=== PATIENT | male | born 1955 | race Caucasian/White ===

== ENCOUNTER → 2018-10-28 12:40 | Outpatient (CLI) | payer BC | END | disposition home or self-care (01) | LOC: D.RAD 10-27 14:30 | PROVIDERS: ATTEND Orthopaedic Surgery | DX: S43.431A Superior glenoid labrum lesion of right shoulder, initial encounter (principal); X58.XXXA Exposure to other specified factors, initial encounter ==

== ENCOUNTER 2018-12-31 05:00 | Day surgery (SDC) | payer BC ==
[2018-12-30 12:45] LABS: HEMATOCRIT 38.4 % (42.0-54.0); HEMOGLOBIN 13.2 g/dL (13.5-17.5); MCH 30.6 pg (26.0-34.0); MCHC 34.4 g/dL (31.0-37.0); MCV 88.9 fL (80.0-100.0); MEAN PLATELET VOLUME 9.6 fL (7.4-10.4); RBC 4.32 10x6/uL (4.20-6.10); RDW 13.3 % (11.5-14.5); WBC 6.6 10x3/uL (4.8-10.8)
[~2018-12-31 05:00] MED LIST: LISINOPRIL20 MG PO; NORVASC5 MG PO; ULTRAM50 MG PO
[2018-12-31 05:37] VITALS: BP 140/79
[2018-12-31] MEDS ORDERED: PERCOCET 10-321 EAC1 PO (09:15)
[2018-12-31] MEDS ORDERED: VISTARIL50 MG PO (09:15)
--- NOTE | 2018-12-31 10:02 | NUR ---
PT C/O PAIN AT 04/26. NOTIFIED ANESTHESIA. DR KULKARNI AT BEDSIDE AND BLOCK PERFORMED. PT RATES PAIN AT 10/24 POST BLOCK.
--- NOTE | 2018-12-31 12:08 | OP ---
PATIENT NAME: BALAJI NASH MEDICAL RECORD: [id number] :57 LOCATION:[facility] ADMISSION DATE: SURGEON: BALAJI BRYSON DO DATE OF OPERATION: 12/31/2018 PROCEDURE PERFORMED: Right shoulder arthroscopy with labral debridement, subacromial decompression, mini open rotator cuff repair and biceps tenodesis. PREOPERATIVE DIAGNOSES: Right shoulder rotator cuff tear, labral tear, subacromial impingement. POSTOPERATIVE DIAGNOSES: Right shoulder rotator cuff tear, labral tear, subacromial impingement. INDICATIONS: Mr. Leigh is a 63-year-old male who has had right shoulder pain for quite some time. He got an MRI showing a rotator cuff tear with labral tear. It was giving him pain for quite some time. He had injections, which did not help. He was tired of dealing with the pain and wanted something done for the surgery. I informed him of the risks and benefits of the procedure including infection, bleeding, damage to nerves and vessels, need for further surgery, retear of the rotator cuff and continued pain, loss of motion. He was okay with those risks and signed the consent. SURGEON: Balaji Bryson DO DESCRIPTION OF PROCEDURE: The patient was taken to the operative suite after getting an interscalene block by anesthesia, laid in the left lateral decubitus position with an axillary roll under the axilla and well-padded on the beanbag. The patient was then sedated and LMA was placed. A timeout was performed, everyone was in agreement with the correct side, site, patient, and procedure. He received 900 mg clindamycin prior to the procedure starting. We then started the procedure by inserting an 18-gauge spinal needle into the joint and then started the posterior portal with an 11-blade scalpel. The trocar was then entered into the joint and the camera was entered in. There was a labral tear seen right away and the biceps tendon was subluxed medially. The anterior portal was then established with a 15-gauge spinal needle, 11-blade scalpel. Burner was then brought in. Biceps tenotomy was then done and the shoulder was inspected. The rotator cuff tear in the supraspinatus was noted at the anterior insertion. The subscapularis was also seen to have a partial tear, but was in good attachment on the humerus and the infraspinatus was in good shape. The burner then was used to do a labral debridement and the shoulder trocar was switched to the subacromial space. A lateral portal was established using an 18-gauge spinal needle and 11-blade scalpel. Burner was brought in to clean off the acromion. There was a large spur noted on the acromion and once the lateral portal was established, the spur was cleaned up and the AC joint was cleared up and there was good space between the clavicle and the acromion. The rotator cuff tear was then noted as well. The bur was then brought in and cleaned off the spur of the distal lateral acromion. We then converted to open and the rotator cuff repair commenced. Careful dissection made down through the deltoid and deltoid fascia and then the subacromial bursa was removed off the tear. The SpeedBridge was used after decortication was done with the shaver of the greater tuberosity. Two anchors were put in medially right at the articular margin and then the FiberTape and sutures were brought through the rotator cuff with the scorpion and tied down with the free limbs and then brought over to 2 lateral anchors repairing it very nicely. The attention was then drawn to the biceps OPERATIVE REPORT [id number] BALAJI NASH and the anterior humerus. A small incision was made and careful dissection was made down to the long head of the bicep tendon. This was pulled out through the incision and whipstitched and then a unicortical button was placed in the humerus and it was cinched down and then tied and a free needle was used to go back through the bicep tendon and tied that down on top of that securing it very well into place. The excess suture and tendon were then cut at that time and the site was irrigated thoroughly. This was then closed with 2-0 Vicryl and 4-0 Monocryl running, 2-0 Vicryl in an inverted interrupted fashion, 4-0 Monocryl in a running stitch. The anterior and posterior portal sites were then closed with 4-0 Monocryl in inverted interrupted fashion and the rotator cuff repair site deltoid fascia was closed with 2-0 Vicryl in a [id number] and then 2-0 Vicryl in inverted interrupted fashion on the skin and Monocryl ran on the skin and then these were all covered with Dermabond glue. The patient was then awakened and taken to recovery in stable condition and put in a sling. BLOOD LOSS: Minimal. COMPLICATIONS: None. TRANSINT:[id number] Voice Confirmation ID: [id number] DOCUMENT ID: [id number] BALAJI BRYSON DO at 1208 CC: [id number] DICTATION DATE: 12/31/18921 DIGITAL PRINTER OPERATOR: 12/31/18 1106 [address] [place] [id number] [place] [id number]
== END 2018-12-31 11:40 | disposition home or self-care (01) ==
LOC: D.OPS 05:00 → D.PAN 07:00 → D.OPS 07:00 → D.PAN 07:30 → D.OPS 11:40
PROVIDERS: Anesthesiology; ATTEND Orthopaedic Surgery
DX: M75.111 Incomplete rotator cuff tear or rupture of right shoulder, not specified as traumatic (principal); M75.41 Impingement syndrome of right shoulder; S43.401A Unspecified sprain of right shoulder joint, initial encounter; X58.XXXA Exposure to other specified factors, initial encounter; Z01.812 Encounter for preprocedural laboratory examination